=== PATIENT | female | born 1985 | race African-American/Black ===

== ENCOUNTER 2018-01-05 23:41 | Emergency (ER) | payer SELFPAY ==
[~2018-01-05] VITALS: Ht 180.3 cm; Wt 64.9 kg
[2018-01-06 00:34] VITALS: BP 93/50
[2018-01-06] MEDS ORDERED: IBUPROFEN 400 MG TABLET ONE (00:59)
[2018-01-06] MEDS ORDERED: IBUPROFEN 400 MG TABLET PO ONE (01:00)
== END 2018-01-06 06:06 | disposition home or self-care (01) ==
LOC: ER 23:43
DX: G89.29 Other chronic pain (principal); E11.9 Type 2 diabetes mellitus without complications
CPT/HCPCS: 99283; A4606; Z7610

== ENCOUNTER 2018-01-08 21:44 | Emergency (ER) | payer MEDICAID ==
[~2018-01-08] VITALS: Ht 165.1 cm; Wt 61.2 kg
--- NOTE | 2018-01-09 01:49 | NUR ---
bib ra from streets; "im feeling depressed" ALSO COMPLAINING OF CHRONIC BACK PAIN. VSS NO ACUTE DISTRESS AT THIS TIME. PT IS ALERT AND ORIENTED X3 ABLE TO MAKE NEEDS KNOWN. SKIN WARM AND INTACT. WILL CONTINUE TO MONITOR FOR ANY CHANGES DURING THE SHIFT.
--- NOTE | 2018-01-09 01:50 | NUR ---
ER MD ALVES AT BEDSIDE FOR EVAL
[2018-01-09 02:32] LABS: APPEARANCE,URINE SL CLOUDY (CLEAR); BILIRUBIN,URINE NEGATIVE (NEGATIVE); BLOOD, URINE NEGATIVE Ery/uL (NEGATIVE); COLOR,URINE OTHER (YELLOW); KETONES,URINE NEGATIVE (NEGATIVE); LEUKOCYTE ESTERASE ,URINE NEGATIVE (NEGATIVE); NITRITE, URINE NEGATIVE (NEGATIVE); PROTEIN,URINE NEGATIVE (NEGATIVE); UGLUCOSE 3+ mg/dL (NEGATIVE); UROBILINOGEN,URINE 0.2 EU/dL (0.2)
[2018-01-09 02:48] LABS: BACTERIA,URINE Moderate /HPF (None Seen); RBC,URINE 0-2 /HPF (0-2)
[2018-01-09 02:49] LABS: SQUAMOUS EPITHELIAL CELL,UR Moderate /HPF (None Seen); YEAST,URINE Moderate /HPF (None Seen)
[2018-01-09 03:21] VITALS: BP 130/77
== END 2018-01-09 03:22 | disposition home or self-care (01) ==
LOC: ER 21:45
DX: M54.5 Low back pain (principal); G89.29 Other chronic pain; E11.9 Type 2 diabetes mellitus without complications; R30.0 Dysuria
CPT/HCPCS: 81001; 87086; 99284; A4606; Z7610; 81000-TC

== ENCOUNTER 2018-01-20 08:32 | Emergency (ER) | payer MEDICAID, OTHER ==
[~2018-01-20] VITALS: Ht 180.3 cm; Wt 61.2 kg
--- NOTE | 2018-01-20 08:42 | NUR ---
PT REC;D IN CUSTODY FROM [facility] WITH MEDS DIABECTIC
--- NOTE | 2018-01-20 08:51 | NUR ---
PT REFUSES TO GIVE UA DOESN'T WANT TO DRIN REFUSES TO TALK TO MD LABS ORDERED
[2018-01-20] MEDS ORDERED: IV NS 0.9% 1,000 ML BAG IV ONE (09:00)
[2018-01-20 09:28] LABS: BASOPHILS # (AUTO) 0.1 /CMM (0.0-0.2); BASOPHILS % (AUTO) 1.1 % (0.0-2.0); HEMATOCRIT 33 % (33-45); LYMPHOCYTES # (AUTO) 2.1 /CMM (0.8-4.8); LYMPHOCYTES % (AUTO) 34.1 % (20.0-44.0); MEAN CORPUSCULAR HEMOGLOBIN 24 PG (26.0-33.0); MEAN CORPUSCULAR HGB CONC 30 g/dl (31.0-36.0); MEAN CORPUSCULAR VOLUME 80 fL (82-100); MONOCYTES # (AUTO) 0.4 /CMM (0.1-1.30); MONOCYTES % (AUTO) 5.9 % (2.0-12.0); NEUTROPHILS # (AUTO) 3.5 /CMM (1.8-8.9); NEUTROPHILS % (AUTO) 58.9 % (43.0-81.0); PLATELET COUNT (AUTO) 263 /CMM (150-450); RDW COEFFICIENT OF VARIATION 15.9 (11.5-15.0)
--- NOTE | 2018-01-20 09:28 | NUR ---
PT IV STARTED 22G RT WRIST LABS DRAWN SENT TO LAB PENDING UA BREAKFAST TRAY ORDERED
[2018-01-20 09:34] LABS: CALCIUM, SERUM 8.7 mg/dL (8.5-10.1); CREATININE 0.5 mg/dL (0.6-1.3); POTASSIUM 4.2 mmol/L (3.5-5.1)
[2018-01-20 09:39] LABS: BILIRUBIN,DIRECT 0.1 mg/dL (0.0-0.2); BILIRUBIN,TOTAL 0.4 mg/dL (0.2-1.0); TOTAL PROTEIN, SERUM 6.3 g/dL (6.4-8.2)
[2018-01-20 09:57] LABS: ACETAMINOPHEN 0 ug/ml (10-30); ALCOHOL, BLOOD < 3 mg/dL (0-0); SALICYLATE 0.4 mg/dL (2.8-20.0)
--- NOTE | 2018-01-20 09:57 | NUR ---
[facility] [phone]
[2018-01-20] MEDS ORDERED: INSULIN REGULAR, HUMAN 100 UNIT/ML 10 ML VIAL ONE (11:10)
--- NOTE | 2018-01-20 11:27 | NUR ---
PT C;EARED FOR CUSTODY PINKY IN TO SEE PT CLEARED GIVEN INSULIN 6 UNITS REG PER MD ORDER
[2018-01-20 11:28] VITALS: BP 155/87
--- NOTE | 2018-01-20 11:28 | NUR ---
PT. VERBALIZED UNDERSTANDING OF AFTERCARE INSTRUCTIONS.IV removed. Catheter intact and site benign. Pressure and 4x4 applied to site. No bleeding noted.Patient discharged to home in stable condition. Written and verbal after care instructions given. Patient verbalizes understanding of instruction.
[2018-01-20] MEDS ORDERED: INSULIN REGULAR, HUMAN 100 UNIT/ML 10 ML VIAL SQ ONE (11:30)
== END 2018-01-20 11:31 ==
LOC: ER 08:33
DX: E11.9 Type 2 diabetes mellitus without complications (principal); Z59.0 Homelessness
CPT/HCPCS: 36415; 80048; 80076; 80329; 82010; 82962; 84703; 85025; 96372; 99284; A4606; G0480 ×2; J1815; J7030; Z7610